=== PATIENT | female | born 1950 | race Caucasian/White ===

== ENCOUNTER 2018-11-29 08:54 | Outpatient (CLI) | payer OTHER ==
[~2018-11-29 08:54] MED LIST: CIPRO500 MG PO; FLAGYL500MG PO; PERCOCET 5/3251 TAB PO
== END 2018-11-29 15:00 | disposition home or self-care (01) ==
LOC: LAB 08:54
DX: E03.8 Other specified hypothyroidism (principal); I10 Essential (primary) hypertension; E11.9 Type 2 diabetes mellitus without complications; E78.2 Mixed hyperlipidemia; Z12.11 Encounter for screening for malignant neoplasm of colon; N80.8 Other endometriosis; M81.0 Age-related osteoporosis without current pathological fracture

== ENCOUNTER 2018-11-29 09:55 | Outpatient (CLI) | payer OTHER | END 2018-11-29 10:06 | disposition home or self-care (01) | LOC: RAD 09:55 | DX: J44.9 Chronic obstructive pulmonary disease, unspecified (principal) ==

== ENCOUNTER → 2018-12-06 | Outpatient (CLI) | payer OTHER | END | disposition home or self-care (01) | LOC: NUCLEAR 09:27 | DX: M81.0 Age-related osteoporosis without current pathological fracture (principal); I10 Essential (primary) hypertension ==

== ENCOUNTER 2019-01-29 15:29 | Outpatient (CLI) | payer OTHER | END 2019-01-29 15:45 | disposition home or self-care (01) | LOC: SONOGRAMA 15:29 → LAB 15:29 | DX: D64.0 Hereditary sideroblastic anemia (principal); J11.1 Influenza due to unidentified influenza virus with other respiratory manifestations; J44.9 Chronic obstructive pulmonary disease, unspecified ==

== ENCOUNTER 2019-02-14 12:49 | Emergency (ER) | payer OTHER ==
[~2019-02-14] VITALS: Ht 165.1 cm; Wt 56.2 kg
== END 2019-02-14 17:45 | disposition home or self-care (01) ==
LOC: ER 12:49
DX: S42.252A Displaced fracture of greater tuberosity of left humerus, initial encounter for closed fracture (principal); W18.39XA Other fall on same level, initial encounter; Y93.89 Activity, other specified; Y92.89 Other specified places as the place of occurrence of the external cause; Y99.8 Other external cause status

== ENCOUNTER 2019-02-27 12:40 | Outpatient (CLI) | payer OTHER | END 2019-02-27 15:14 | disposition home or self-care (01) | LOC: RAD 12:40 | DX: S42.222A 2-part displaced fracture of surgical neck of left humerus, initial encounter for closed fracture (principal) ==

== ENCOUNTER 2019-03-13 18:13 | Outpatient (CLI) | payer OTHER | END 2019-03-13 18:31 | disposition home or self-care (01) | LOC: RAD 18:13 | DX: S42.222D 2-part displaced fracture of surgical neck of left humerus, subsequent encounter for fracture with routine healing (principal) ==

== ENCOUNTER 2019-12-01 12:27 | Emergency (ER) | payer OTHER ==
[~2019-12-01] VITALS: Ht 165.1 cm; Wt 51.7 kg
[2019-12-01] MEDS ORDERED: ZOLOFT50 MG PO (12:40)
[2019-12-01] MEDS ORDERED: AIRBORNE EFFER1 EACH PO (14:47)
[2019-12-01] MEDS ORDERED: IBUPROFEN600 MG PO (14:47)
== END 2019-12-01 15:02 | disposition home or self-care (01) ==
LOC: ER 12:27
DX: J02.9 Acute pharyngitis, unspecified (principal)

== ENCOUNTER 2020-02-25 13:12 | Outpatient (CLI) | payer OTHER ==
[~2020-02-25 13:12] MED LIST changes: +AIRBORNE EFFER1 EACH PO; +IBUPROFEN600 MG PO; +ZOLOFT50 MG PO
== END 2020-02-25 13:28 | disposition home or self-care (01) ==
LOC: MAMO-SONO 13:12
PROVIDERS: ATTEND Obstetrics & Gynecology
DX: Z12.31 Encounter for screening mammogram for malignant neoplasm of breast (principal); N60.11 Diffuse cystic mastopathy of right breast

== ENCOUNTER 2021-02-02 11:05 | Outpatient (CLI) | payer OTHER | END 2021-02-02 11:11 | disposition home or self-care (01) | LOC: LAB 11:05 | PROVIDERS: ATTEND Obstetrics & Gynecology | DX: N91.1 Secondary amenorrhea (principal) ==

== ENCOUNTER 2021-05-18 10:44 | Outpatient (CLI) | payer OTHER | END 2021-05-18 15:30 | disposition home or self-care (01) | LOC: MAMO-SONO 10:44 | DX: N64.89 Other specified disorders of breast (principal); Z12.31 Encounter for screening mammogram for malignant neoplasm of breast; R41.2 Retrograde amnesia ==

== ENCOUNTER 2021-05-18 12:25 | Outpatient (CLI) | payer OTHER | END 2021-05-18 12:29 | disposition home or self-care (01) | LOC: NUCLEAR 12:25 | DX: M81.0 Age-related osteoporosis without current pathological fracture (principal) ==